=== PATIENT | female | born 1940 | race Hispanic/Latino ===

== ENCOUNTER 2016-09-27 14:38 | Outpatient (CLI) | payer MEDICARE ==
--- NOTE | 2016-09-27 16:17 | Mammography Report ---
BONE DEXA:09/27/16 14:38:00 CLINICAL: Postmenopausal. No comparison. TECHNIQUE: Two site bone DEXA performed on an Hologic scanner. FINDINGS: The average BMD of the lumbar spine L1-L4 is 1.066g/cm squared with a T-score of +0.2 and a Z-score of +2.7. The average BMD of the left hip is 0.897g/cm squared with a T-score of -0.4 and a Z-score of is 1.6. The femoral neck BMD is 0.578g/cm squared with a T score of -2.4 and a Z score of -0.2 IMPRESSION: 1. WHO classification: Normal with average fracture risk based on lumbar spine measurements. 2. WHO classification: Osteopenia with increased fracture risk based on left femoral neck measurements. RECOMMENDATION: Clinical correlation and routine screening. DEFINITIONS: BMD = Bone Mineral Density T-score = BMD related to mean peak bone mass of young adult (mean expressed in Standard Deviation) Z-score = Age matched BMD expressed in SD World Health Organization (WHO) Diagnostic Criteria Normal T-score > -1 SD Osteopenia T-score between -1 and -2.4 SD Osteoporosis T-score -2.5 SD or below NOTE: BMD is not the only risk factor for fracture. One should also consider factors such as the patient's age, risk of falling, previous osteoporotic fracture, family history of osteoporotic fractures, current smoker, and low body weight. Z-scores are not calculated if >80 years of age.
--- NOTE | 2016-09-27 16:35 | Mammography Report ---
BILATERAL DIGITAL SCREENING MAMMOGRAM with CAD: 09/27/16 14:38:00 CLINICAL: Routine screening. COMPARISON:08/06/15 FINDINGS: The breasts are almost entirely fatty. A new 4 mm oval circumscribed focal asymmetry in the left breast at 6 o'clock requires additional imaging.No architectural distortion or suspicious calcifications.The right breast is negative. IMPRESSION: Left asymmetry requiring further workup. BI-RADS CATEGORY: 0 -- Additional Imaging Evaluation Required RECOMMENDATION: Recall for left spot magnification MLO and CC views and left breast ultrasound. ACR BI-RADS MAMMOGRAPHIC CODES: 0 = Needs additional imaging evaluation; 1 = Negative; 2 = Benign; 3 = Probably benign; 4 = Suspicious; 5 = Malignant; 6 = Known biopsy-proven malignancy COMMENT: 1. Dense breast tissue, i.e., adenosis, fibrocystic changes, etc., may obscure an underlying neoplasm. 2. Approximately 10% of cancers are not detected with mammography. 3. A negative mammography report should not delay biopsy if a clinically suspicious mass is present. COMMENT: Patient follow-up letters are generated via our [employer] application.
== END 2016-09-27 14:39 | disposition home or self-care (01) ==
LOC: SPVWC 14:38
PROVIDERS: ATTEND Obstetrics & Gynecology
DX: Z12.31 Encounter for screening mammogram for malignant neoplasm of breast (principal); M85.88 Other specified disorders of bone density and structure, other site; Z78.0 Asymptomatic menopausal state
CPT/HCPCS: 77080; G0202; 77067

== ENCOUNTER 2016-10-05 15:07 | Outpatient (CLI) | payer MEDICARE ==
--- NOTE | 2016-10-05 16:09 | Mammography Report ---
LEFT DIGITAL DIAGNOSTIC MAMMOGRAM and LEFT BREAST ULTRASOUND: 10/05/16 15:07:00 CLINICAL: Recalled for asymmetry. COMPARISON:09/27/16 screening FINDINGS: Spot magnification MLO and CC views were performed and demonstrated a persistent oval 4 mm smooth circumscribed density at 6 o'clock. Ultrasound of the lower left breast was performed and demonstrated an oval predominately echogenic lesion at 6 o'clock 3 cm from the nipple. It measures 6 x 2 x 7 mm. It is predominantly hyperechoic with a hypoechoic center and may or may not correlate with the mammographic density. IMPRESSION: Probably benign mammographic and ultrasound findings. The ultrasound suggests a focus of benign fat necrosis at 6 o'clock.The patient did report having recently fallen with a blow to her left breast. BI-RADS CATEGORY: 3 - - Probably Benign RECOMMENDATION: Six month followup left mammogram and left breast ultrasound. ACR BI-RADS MAMMOGRAPHIC CODES: 0 = Needs additional imaging evaluation; 1 = Negative; 2 = Benign; 3 = Probably benign; 4 = Suspicious; 5 = Malignant; 6 = Known biopsy-proven malignancy COMMENT: 1. Dense breast tissue, i.e., adenosis, fibrocystic changes, etc., may obscure an underlying neoplasm. 2. Approximately 10% of cancers are not detected with mammography. 3. A negative mammography report should not delay biopsy if a clinically suspicious mass is present. COMMENT: Patient follow-up letters are generated via our [employer] application.
== END 2016-10-05 15:08 | disposition home or self-care (01) ==
LOC: SPVWC 15:07
PROVIDERS: ATTEND Obstetrics & Gynecology
DX: R92.2 Inconclusive mammogram (principal)
CPT/HCPCS: 76642; G0206

== ENCOUNTER 2016-11-18 13:32 | Day surgery (SDC) | payer MEDICARE ==
[2016-11-18 15:23] VITALS: BP 152/75
== END 2016-11-18 13:33 | disposition home or self-care (01) ==
LOC: OR 13:32
PROVIDERS: ATTEND Urology
DX: N20.0 Calculus of kidney (principal); Z53.8 Procedure and treatment not carried out for other reasons

== ENCOUNTER 2016-12-16 06:00 | Day surgery (SDC) | payer MEDICARE ==
[2016-12-16] MEDS ORDERED: NACL BACTERIOSTATIC INFILTRATI ONE (06:54)
[2016-12-16] MEDS ORDERED: DIPRIVAN 10 MG/ML IV ONE (07:02)
[2016-12-16] MEDS ORDERED: DECADRON ONE (07:03)
[2016-12-16] MEDS ORDERED: ZOFRAN ONE (07:03)
[2016-12-16] MEDS ORDERED: XYLOCAINE MPF 2% ONE (07:03)
[2016-12-16] MEDS ORDERED: DILAUDID ONE ×2 (07:03→09:18)
--- NOTE | 2016-12-16 07:26 | Anesthesia Consultation ---
Anesthesia Consult and Med Hx Date of service: 12/16/16 - Airway Anesthetic Teeth Evaluation: Good ROM Head & Neck: Adequate Mental/Hyoid Distance: Adequate Mallampati Class: Class II Intubation Access Assessment: Good - Pulmonary Exam CTA: Yes - Cardiac Exam Cardiac Exam: RRR - Pre-Operative Health Status ASA Pre-Surgery Classification: ASA2 Proposed Anesthetic Plan: General - Pulmonary Hx Smoking: Yes (STOPPED 1977 , 1PPD X 20 YRS) Hx Sleep Apnea: No (MARLON PRE SCREEN LOW RISK) - Cardiovascular System Hx Hypertension: No - Central Nervous System Hx Back Pain: Yes - Endocrine Hx Hypothyroidism: Yes (ON MEDS) - Other Systems Hx Cancer: No
--- NOTE | 2016-12-16 07:26 | Anesthesia Day of Surgery ---
Anesthesia Day of Surgery - Day of Surgery Patient Examined: Yes Patient H&P Reviewed: Yes Patient is NPO: Yes
[2016-12-16] MEDS: NACL 0.9% 1000 ML 1,000 ML IV SCH ×2 (07:41→10:13)
[2016-12-16] MEDS ORDERED: PEPCID PO NR (08:00)
[2016-12-16] MEDS ORDERED: VERSED IV NR (08:00)
[2016-12-16] MEDS ORDERED: ANCEF/STERILE WATER 2 GM/20 ML IV NR (08:00)
[2016-12-16] MEDS ORDERED: ANCEF/STERILE WATER 2 GM/20 ML 2 GM/20 ML SYRINGE IV NR (09:00)
--- NOTE | 2016-12-16 09:08 | Post Operative Note ---
Date of procedure: 12/16/16 Pre-op diagnosis: r renal stone Post-op diagnosis: same Findings: as above Procedure: r eswl Anesthesia: CLAIRE Surgeon: NAEEM MARTIN Estimated blood loss: none Pathology: none Condition: stable Disposition: PACU
--- NOTE | 2016-12-16 09:09 | Discharge Summary ---
Short Stay Discharge Plan Activity: other (no straining ) Weight Bearing Status: Full Weight Bearing Diet: low fat, low cholesterol, low salt Special Instructions: other (inc fluids ) Follow up with: YOLY GLYNN DO [Primary Care Provider] - 7 Days NAEEM MARTIN MD [Staff Physician] - 7 Days
[2016-12-16] MEDS: DILAUDID IV PRN ×2 (09:20→09:35)
[2016-12-16] MEDS ORDERED: ZOFRAN IV PRN (10:00)
[2016-12-16 10:28] VITALS: BP 152/79
--- NOTE | 2016-12-16 11:38 | Post Anesthesia Evaluation ---
- Post Anesthesia Evaluation Patient Participated: Yes Airway Patent: Yes Stable Respiratory Function: Yes Nausea/Vomiting: No Temp > 96.8F: Yes Pain Manageable: Yes Adequeate Hydration: Yes Anesthesia Complications: No
--- NOTE | 2016-12-16 13:50 | Operative Report ---
PREOPERATIVE DIAGNOSIS: Large right renal stone. POSTOPERATIVE DIAGNOSIS: Large right renal stone. PROCEDURE: Right in situ lithotripsy. SURGEON: Tanmay Grier MD ANESTHESIA: General. FINDINGS: This is a woman with a large 1.2 cm stone. It was not very dense on radiographic study, where you could see well on the KUB. She now presents for lithotripsy, possible stent. DESCRIPTION OF PROCEDURE: The patient was brought to the operating room and placed on the operating table. Following induction of anesthesia, the stone was easily localized both the AP and oblique image. Shocks were begun at 1 kV. Renal pause was carried out and shocks were increased to 5 kV. A total of 2500 shocks were given. At about the 800 zachary, it was basically all fragmented and we continued the shocks on all the different directions. We had the table for stent placement, but there was such excellent fragmentation, we decided not to place a stent. Family was notified and she may need a stent to her stage procedure, but at this point now we will see if she passes the fragments. The patient tolerated the procedure well and brought to recovery room in stable condition. JOB# [id number] BRITT/[place]
== END 2016-12-16 10:50 | disposition home or self-care (01) ==
LOC: OR 06:00
PROVIDERS: ATTEND Urology
DX: N20.0 Calculus of kidney (principal); E03.9 Hypothyroidism, unspecified; Z87.891 Personal history of nicotine dependence; Z79.82 Long term (current) use of aspirin; Z79.899 Other long term (current) drug therapy
CPT/HCPCS: 50590; J0690; J1100; J1170; J2250; J2405; J2704; J7030